=== PATIENT | male | born 1955 | race African-American/Black ===

== ENCOUNTER 2017-07-30 10:08 | Day surgery (SDC) | payer BC ==
[~2017-07-30] VITALS: Ht 180.3 cm; Wt 102.7 kg
[~2017-07-30 10:08] MED LIST: ALLO100T PO; ASPI1TAB57 PO; LOSA50TA PO; METO50TA PO; SPIR25TA PO; ZOCO40TA PO
[2017-07-30] MEDS ORDERED: IOHEXOL 350 MG/ML 100 ML BTL (for Cath Lab) OTHER ONE (10:09)
[2017-07-30 10:46] VITALS: BP 141/84; PULSE 44; RESP 18; TEMP 98.9; O2SAT 98
[2017-07-30] MEDS ORDERED: AMLO10TA2 PO (10:52)
[2017-07-30] MEDS ORDERED: NITR0.4S SL (10:52)
[2017-07-30] MEDS ORDERED: ATOR80TA45 PO (10:52)
[2017-07-30] MEDS ORDERED: ISOS10TA3 PO (10:52)
[2017-07-30] MEDS ORDERED: NS 1000P @30 MLS/HR (KVO) IV SCH (11:00)
[2017-07-30 11:48] LABS: AUTOMATED NEUTROPHIL # 2.4 TH/MM3 (1.8-7.7); BASOPHIL % 0.4 % (0.0-2.0); EOSINOPHIL % 1.1 % (0.0-4.0); HEMATOCRIT 41.6 % (39.0-51.0); HEMOGLOBIN 13.6 GM/DL (13.0-17.0); LYMPH % 31.9 % (9.0-44.0); LYMPHOCYTE # 1.4 TH/MM3 (1.0-4.8); MEAN CELL VOLUME 85.8 FL (80.0-100.0); MEAN CORPUSCULAR HEMOGLOBIN 28.1 PG (27.0-34.0); MEAN CORPUSCULAR HGB CONC 32.8 % (32.0-36.0); MEAN PLATELET VOLUME 8.1 FL (7.0-11.0); MONO % 10.2 % (0.0-8.0); MONOCYTE # 0.4 TH/MM3 (0-0.9); NEUT % 56.4 % (16.0-70.0); PLATELET COUNT 233 TH/MM3 (150-450); RED BLOOD COUNT 4.85 MIL/MM3 (4.50-5.90); RED CELL DISTRIBUTION WIDTH 14.3 % (11.6-17.2); WHITE BLOOD COUNT 4.3 TH/MM3 (4.0-11.0)
[2017-07-30] MEDS ORDERED: MIDAZOLAM HCL 2 MG/2 ML VIAL ONE (12:22)
[2017-07-30] MEDS ORDERED: HEPARIN-NS/PF INJ 1,000 ML ONE (12:22)
[2017-07-30] MEDS ORDERED: SODIUM CHLOR 0.9% 1000 ML INJ 1,000 ML IV SCH (13:35)
[2017-07-30] MEDS ORDERED: BACITRACIN OINT 0.9 GM PKT TOP ONE (13:45)
[2017-07-30] MEDS ORDERED: MISC INFORMATION XX ONE (13:45)
[2017-07-30] MEDS ORDERED: LORazepam 2 MG/ML VIAL IV PUSH PRN (13:45)
[2017-07-30] MEDS ORDERED: ATROPINE SULFATE 1 MG/ML VIAL IV PUSH PRN (13:45)
[2017-07-30] MEDS ORDERED: METOCLOPRAMIDE HCL 10 MG/2 ML VIAL IV PUSH PRN (13:45)
[2017-07-30] MEDS ORDERED: SODIUM CHLOR 0.9% 250 ML INJ 250 ML IV PRN (13:45)
[2017-07-30] MEDS ORDERED: LIDOCAINE HCL 1% 50 ML VIAL INFIL PRN (13:45)
--- NOTE | 2017-07-30 13:53 | CATHPROC ---
[facility] HIS Report Study Information Study Number Admission Scheduled Start Study Start [id number] Jul 30 2017 10:08AM 07/30/2017 Jul 30 2017 12:02PM [facility] Cardiac Catheterization Admit Source Facility Department [facility]er Physician and Clinical Staff Initial Aureliano Madden Retort Press Operator Wayne RN, Justen Recorder Beatrice Benavidez,RT(R) Scrub Alba Chandler,SARA TECH2 Procedures Performed Procedure Location (Site) Vessel Name Angiogram LV LV Ventricle Coronary Angiograms LCA Left Coronary Coronary Angiograms RCA Right Coronary L Heart Cath Equipment Time Engine Dispatcher Description Size Mfg Part Number Used/Scraped TRANSDUCER, TRUWAVE [id number] 12:15 MADRIGAL CHILDERS * Used W/STOCKCOCK *[id number] *[id number] 12:15 Macrocosm INDUSTRIES PACK, CCL CUSTOM * Used *[id number] 12:15 Macrocosm PACER PEN, SKIN DUAL W/ RULER * Used *[id number] 13:17 ZextitTRONIC JL 4.0 DXTERITY CATHETER FR 5 Used *[id number] 13:22 HabitRPG PIGTAIL ANG. CATHETER FR 5 Used *[id number] 12:15 VidPay MEDICAL WIRE, 3MMJ .035 180CM 180CM Used *[id number] 12:15 NAMIC MANIFOLD, 4 PORT * Used *[id number] 13:25 NAMIC TUBING, HIGH PRESSURE 48" 48" Used *[id number] 12:15 NYCOMED OMNIPAQUE, 350 MG, 150ML 150ML [id number] Used 13:24 NYCOMED OMNIPAQUE, 350 MG, 50ML 50ML [id number] Used [id number] 12:15 ZAMORA MEDICAL BLANKET,WARM AIR CCL * Used *[id number] 12:15 TERUMO MEDICAL SHEATH, FR5 TERUMO (10CM) FR 5 Used *[id number] Equipment Model, Serial, Lot Number and Expiration Data Description Model Number Serial Number Lot Number Expiration Date JL 4.0 DXTERITY CATHETER [id number] 02-22-2020 History: Current Medications Medication Dosage/Unit Route Frequency Last Date/Time Taken ASA LOPRESSOR Allopurinol COZAAR NORVASC Statins (any) NTG SL History: Allergies Allergy Reaction No Known Allergies History: Risk Factors Family History of Hypertension Dyslipidemia Previous [facility] Previous Heart Failure Premature CAD Yes Yes No Yes No Prior Valve Prior PCI Prior PCIDate Prior CABG Surgery No Yes 07/23/2008 No Cerebrovascular Peripheral Artery Chronic Lung On Dialysis Diabetes Disease Disease Disease No No No No No History: Stress Tests Stress or Imaging Studies Performed Yes Standard Exercise Stress Test No Stress Echo No Stress Test SPECT Stress Test SPECT Result Stress Test SPECT Ischemia Risk/Extent Yes Positive Intermediate Stress Test CMR No Cardiac CTA Coronary Calcium Score No No History: Other Disease Selection Items CAD HTN History: Other Current Smoker No Labs Hgb (g/dl) Hct (%) WBC (l/cumm) Platelets (thousands) 11.60-17.00 35.00-51.00 4.00-11.00 150.00-450.00 13.6 41.6 4.3 233 Glucose (mg/dl) BUN (mg/dl) Creatinine (mg/dl) BUN:Creatinine (1:x) 74.00-106.00 7.00-18.00 0.50-1.30 10.00-20.00 102 19 1.3 14.6 Na (meq/l) K (meq/l) 136.00-145.00 3.50-5.10 145 4.4 INR (PTT:PT) 0.90-1.10 1 CPK-MB (ng/ML) 0.50-3.60 Not Drawn Medication Medication Total Dose (Bolus/Oral) Medication Total Dosage/Unit 1% XYLOCAINE 20 mL FENTANYL 50 mcg VERSED 2 mg Medications (Bolus/Oral) Medication Time Given Dosage/Unit Administered By Reason FENTANYL 07/30/2017 1:04:47 PM 50 mcg Justen Black RN 50 mcg FENTANYL given in lab by Justen Black RN in Left Antecubital via Peripheral IV. Ordered by Aureliano Faustin. VERSED 07/30/2017 1:05:05 PM 2 mg Justen Black RN 2 mg VERSED given in lab by Justen Black RN in Left Antecubital via Peripheral IV. Ordered by Aureliano Swanson. 1% XYLOCAINE 07/30/2017 1:08:36 PM 20 mL Aureliano Swanson 20 mL 1% XYLOCAINE given in lab by Aureliano Swanson in Right Groin via Subcutaneous. Medication (Drip) Medication Time Given Dosage/Unit Concentration/Unit Diluent (ml) Solutio n IV Solutions 07/30/2017 12:18:12 PM 50 mL (IV) NaCl .9 IV Solutions given in lab by Justen Black RN in Left Antecubital via Peripheral IV. Pump/Drip Flow us ing NaCl .9. Initial Case Assessment Cardiovascular HR Rhythm Chest Pain 44 teresa 0 Edema Present Skin color Skin Mild Normal Warm Dry Circulatory - Right Pulses Dorsalis Pedis Femoral 2 2 Scale (0,1,2,3,4,d) Circulatory - Left Pulses Dorsalis Pedis Femoral 2 2 Scale (0,1,2,3,4,d) Neurological State Oriented to time-place- Alert Moves all extremities person Respiration - General Respiration Rate SpO2 (%) (B/min) 13 98 Chronological Log Time Study Chronological Log 12:17:20 Patient arrived via Bed. 12:17:59 Patient Name, D.O.B, / Armband Verified By R.N. 12:18:00 Consent signed by the physician and the patient and verified by the Quality Checker staff. 12:18:01 Pre-op and post- op instructions given; patient acknowledges understanding of instructions. 12:18:02 Verbal Stimulation=2 Physical Stimulation=2 Airway=2 Respiration=2 TOTAL=8. (0=absent, 1=li mited, 2=present) 12:18:06 Patient has been NPO for More than 6Hrs. 12:18:07 Skin Breakdown- none 12:18:07 Patient Warmer Placed on the Table. 12:18:09 Sharifa Prominences Protected 12:18:11 A # 20 IV was noted in the Antecubital (left). Grade = 0 12:18:12 IV Solutions given in lab by Justen Black RN in Left Antecubital via Peripheral IV. Pump/Dr ip Flow using NaCl .9. 12:18:13 History and physical on the chart or being dictated. Assessment: Initial Case, HR=44 BPM, Rhythm=teresa, Chest Pain=0, Edema=Mild, Color=Normal, Skin = Warm, Dry Right Pulses: Santana Ped=2, Femoral=2 12:18:14 Left Pulses: Santana Ped=2, Femoral=2 Neurological: State=Alert, Ox3, GIL Respiration: Resp=13 B/min, SpO2=98 % Vitals capture started with the following parameters, Patient=Adult, Interval=5 min, Initial Pr fpxbmh=025 mmHg, 12:22:04 Deflation Rate=5 mmHg, Cuff placed on Left Arm 12:23:30 HR=44 bpm, ALUA=233/84 mmhg, SpO2=98.0 %, Resp=13 B/min, Pain=0, Topher=10, Maldonado=2 12:24:50 Reference ECG taken 12:28:33 HR=45 bpm, NROA=366/80 mmhg, SpO2=98.0 %, Resp=19 B/min 12:32:39 HR=45 bpm, NEMN=184/80 mmhg, SpO2=98.0 %, Resp=16 B/min 12:34:24 Bilateral groins prepped with 2% chlorhexidine, and draped after a 3 minute waiting time. 12:39:06 HR=43 bpm, BOLV=762/84 mmhg, SpO2=98.0 %, Resp=16 B/min 12:43:08 Pressure channel 1 zeroed. 12:43:26 HR=43 bpm, URKO=148/73 mmhg, SpO2=96.0 %, Resp=14 B/min 12:47:44 HR=42 bpm, YDYM=111/70 mmhg, SpO2=96.0 %, Resp=16 B/min 12:52:39 HR=35 bpm, NIBP=84/63 mmhg, SpO2=99.0 %, Resp=15 B/min 12:52:54 NIBP STAT measurement started. 12:52:55 paged 12:53:51 MD responded 12:54:03 HR=43 bpm, ADDL=848/78 mmhg, SpO2=99.0 %, Resp=11 B/min 12:55:25 MD arrived. 12:57:44 HR=41 bpm, EFSV=281/77 mmhg, SpO2=98.0 %, Resp=12 B/min 13:03:22 HR=43 bpm, MMNE=320/80 mmhg, SpO2=98.0 %, Resp=20 B/min 13:04:47 50 mcg FENTANYL given in lab by Justen Black RN in Left Antecubital via Peripheral IV. Orde red by Aureliano Swanson. 13:05:05 2 mg VERSED given in lab by Justen Black RN in Left Antecubital via Peripheral IV. Ordered by Aureliano Swanson. Time Out. Correct patient, correct procedure, correct physician, power injector loaded, or not loaded with contrast with 13:06:24 surgical team present. Time Out Concurred by MD and individual staff in procedure. 13:07:30 Case Start 13:08:33 HR=41 bpm, OUQX=658/68 mmhg, SpO2=99.0 %, Resp=7 B/min 13:08:36 20 mL 1% XYLOCAINE given in lab by Aureliano Swanson in Right Groin via Subcutaneous. 13:09:17 Access site was Right Femoral Artery. 13:09:47 A SHEATH, FR5 TERUMO (10CM) FR 5 was advanced into the Fem Art (right) using the Percutaneo us technique. A JR 4.0 INFINITI CATHETER FR 5 was advanced over a wire. OMNIPAQUE, 350 MG, 150ML 150ML was us ed for 13:11:03 injections. 13:13:22 HR=49 bpm, BNHC=706/70 mmhg, SpO2=95.0 %, Resp=11 B/min Recorded Pressure: Ao, HR=50, Condition=Condition 1 13:14:45 (Aorta) Ao 107/63/80 13:15:11 The RCA was injected and visualized at various angles. OMNIPAQUE, 350 MG, 150ML 150ML used . After removing the current catheter a JL 4.0 DXTERITY CATHETER FR 5 was advanced over a WIRE, 3 MMJ .035 180CM 13:16:22 180CM. 13:17:46 HR=41 bpm, YYFL=029/66 mmhg, SpO2=99.0 %, Resp=12 B/min 13:18:07 The LCA was injected and visualized at various angles. OMNIPAQUE, 350 MG, 150ML 150ML used . After removing the current catheter a PIGTAIL ANG. CATHETER FR 5 was advanced over a WIRE, 3MMJ .035 180CM 13:22:01 180CM. 13:22:45 HR=57 bpm, BYWX=573/69 mmhg, SpO2=99.0 %, Resp=10 B/min Recorded Pressure: LV, HR=47, Condition=Condition 1 13:25:10 (Left Ventricle) LV 107/4/13 13:26:26 The LV was injected at 10 cc/sec for a total of 30. OMNIPAQUE, 350 MG, 50ML 50ML used. 13:26:53 Catheter was removed 13::57 Case End 13:27:46 HR=57 bpm, ESQR=068/64 mmhg, DiB8=703.0 %, Resp=19 B/min 13:29:43 Sheath removed; pressure applied to access site. 13:32:45 HR=54 bpm, NWJX=746/75 mmhg, DhY1=381.0 %, Resp=14 B/min 13:35:05 Sterile dressing applied to site 13:35:07 No case complications noted. 13:35:30 Bedside Report will be given. 13:35:35 A Left Heart Cath was performed. 13:37:46 HR=45 bpm, KKKP=297/78 mmhg, UhB7=603.0 %, Resp=14 B/min 13:42:48 HR=49 bpm, OQDX=793/75 mmhg, SpO2=99.0 %, Resp=24 B/min 13:52:40 Vitals capture stopped. 13:52:46 Patient moved to [facility] End Study - Contrast Media Used In Study Contrast Total Opened (mL) Total Used (mL) Total Wasted (mL) Omnipaque 70 70 0 End Study - Maximum Contrast Load Max Contrast Load (mL) 394.9 End Study - Radiation Exposure Fluoro Time (minutes) 2.0 End Study - Patient Disposition Complications Transferred To Interventional Outcome No Telemetry Bed No attempt made
--- NOTE | 2017-07-30 14:34 | MA ---
cc: FELIX BARDALES DATE 07/30/2017 INDICATION FOR PROCEDURE Unstable angina. PROCEDURE PERFORMED 1. Fluoroscopy with interpretation. 2. Coronary angiography. 3. Left heart catheterization. 4. Left ventriculography. METHOD The risks, benefits and alternatives were discussed with the patient. The patient understood and consented to the procedure. The patient was brought into the catheterization lab and placed on the catheterization table. The right groin was prepped and draped in sterile fashion. The right groin was anesthetized with 2% lidocaine. The right common femoral artery was cannulated and a 5 Czech, 11 cm sheath was placed without difficulty. LEFT HEART CATHETERIZATION Intraventricular hemodynamics measured 107/4 4 mmHg, left ventricular end-diastolic pressure 10 mmHg. No significant aortic stenosis by transaortic valvular pullback gradient. LEFT VENTRICULOGRAPHY The left ventriculography is performed in a right anterior oblique view using a 5 Czech angled pigtail catheter and 30 cc contrast injection with good opacification. Left ventriculogram revealed ejection fraction of 65%. No significant mitral regurgitation was noted. CORONARY ANGIOGRAPHY 1. The left main coronary has some distal mild disease of 30%. 2. The left anterior descending coronary has a 90% proximal, looks like in-stent restenosis. There is a high diagonal branch which has a 70% ostial stenosis. The remainder of the left anterior descending and diagonal branch have minor luminal irregularities. 3. The left circumflex gives rise to an obtuse marginal branch with a 75% stenosis. 4. The right coronary is a dominant vessel giving rise to a posterior descending branch. The mid right coronary has a 90% stenosis and there appears to be a distal stent in the right coronary artery. The posterior descending branch has a 50% stenosis in the prox-mid segment. CONCLUSIONS 1. Multivessel coronary artery disease. 2. Normal left ventricular systolic function. MD CARSON Ho/MIKE /1:28 PM /2:11 PM
--- NOTE | 2017-07-30 14:55 | PD.CAR.PN ---
CVT Progress Note Subjective/Hospital Course: pt seen and evaluated, sts data discussed with pt RISK SCORES About the STS Risk Calculator Procedure: CAB Only Risk of Mortality: 0.529% Morbidity or Mortality: 9.798% Long Length of Stay: 2.798% Short Length of Stay: 59.626% Permanent Stroke: 0.85% Prolonged Ventilation: 5.673% DSW Infection: 0.296% Renal Failure: 3.363% Reoperation: 3.633% Objective: Vital Signs Date Time Temp Pulse Resp B/P (MAP) Pulse Ox O2 Delivery O2 Flow Rate FiO2 07/30/17 14:05 98 Room Air 07/30/17 10:46 98.9 44 18 141/84 (103) 98 Labs: Laboratory Tests Test 07/30/17 10:56 White Blood Count 4.3 TH/MM3 (4.0-11.0) Red Blood Count 4.85 MIL/MM3 (4.50-5.90) Hemoglobin 13.6 GM/DL (13.0-17.0) Hematocrit 41.6 % (39.0-51.0) Mean Corpuscular Volume 85.8 FL (80.0-100.0) Mean Corpuscular Hemoglobin 28.1 PG (27.0-34.0) Mean Corpuscular Hemoglobin Concent 32.8 % (32.0-36.0) Red Cell Distribution Width 14.3 % (11.6-17.2) Platelet Count 233 TH/MM3 (150-450) Mean Platelet Volume 8.1 FL (7.0-11.0) Neutrophils (%) (Auto) 56.4 % (16.0-70.0) Lymphocytes (%) (Auto) 31.9 % (9.0-44.0) Monocytes (%) (Auto) 10.2 % (0.0-8.0) Eosinophils (%) (Auto) 1.1 % (0.0-4.0) Basophils (%) (Auto) 0.4 % (0.0-2.0) Neutrophils # (Auto) 2.4 TH/MM3 (1.8-7.7) Lymphocytes # (Auto) 1.4 TH/MM3 (1.0-4.8) Monocytes # (Auto) 0.4 TH/MM3 (0-0.9) Eosinophils # (Auto) 0.0 TH/MM3 (0-0.4) Basophils # (Auto) 0.0 TH/MM3 (0-0.2) CBC Comment DIFF FINAL Differential Comment Result Diagram: 07/30/17 1056 Jacquie Killian Jul 30, 2017 14:55
[2017-07-30 15:19] LABS: ALBUMIN 3.8 GM/DL (3.4-5.0); ALT (GPT) 44 U/L (12-78); AST (GOT) 47 U/L (15-37); BICARBONATE 31.9 MEQ/L (21.0-32.0); BLOOD UREA NITROGEN 23 MG/DL (7-18); CALCIUM 9.1 MG/DL (8.5-10.1); CHLORIDE 106 MEQ/L (98-107); CREATININE 1.38 MG/DL (0.60-1.30); GLOMERULAR FILTRATION RATE 63 ML/MIN (>89); GLUCOSE,RANDOM 97 MG/DL (74-106); SODIUM (NA) 141 MEQ/L (136-145)
[2017-07-30 15:21] LABS: ALKALINE PHOSPHATASE 101 U/L (45-117); TOTAL BILIRUBIN ADULT 0.5 MG/DL (0.2-1.0); TOTAL PROTEIN 8.2 GM/DL (6.4-8.2)
--- NOTE | 2017-07-30 16:02 | RADRPT ---
EXAM DATE/TIME: 07/30/2017 15:05 [facility] COMPARISON: No previous studies available for comparison. INDICATIONS : Preop cardiac surgery. MEDICAL HISTORY : Coronary artery disease. Hypertension. Hyperlipidemia. Mumps. Measles. SURGICAL HISTORY : Coronary artery stent. ENCOUNTER: Initial ACUITY: 1 day PAIN SCORE: 0/10 LOCATION: Bilateral legs. TECHNIQUE: Venous ultrasound of the left and right leg was performed from the inguinal ligament to the proximal calf. Real-time, color Doppler and spectral tracing, compression and augmentation techniques were us ed. FINDINGS: RIGHT LEG: There is normal compressibility of the deep venous system from the inguinal region to the proximal ca lf. No echogenic clot is seen in the lumen of the common femoral, femoral, popliteal, and posterior tibial veins. There is a normal response of the venous system to proximal and distal augmentation an d respiration. LEFT LEG: There is normal compressibility of the deep venous system from the inguinal region to the proximal ca lf. No echogenic clot is seen in the lumen of the common femoral, femoral, popliteal, and posterior tibial veins. There is a normal response of the venous system to proximal and distal augmentation an d respiration. CONCLUSION: No evidence of DVT. Martin Daley MD on July 30, 2017 at 15:59 Board Certified Radiologist. This report was verified electronically.
--- NOTE | 2017-07-30 16:05 | RADRPT ---
EXAM DATE/TIME: 07/30/2017 15:13 [facility] COMPARISON: No previous studies available for comparison. INDICATIONS : Preop cardiac surgery. MEDICAL HISTORY : Coronary artery disease. Hypertension. Hyperlipidemia. Mumps. Measles. SURGICAL HISTORY : Coronary artery stent. ENCOUNTER: Initial ACUITY: 1 day PAIN SCORE: 0/10 LOCATION: Bilateral legs. GREATER SAPHENOUS VEIN THIGH: PROXIMAL: Right 5 mm Left 7 mm MID: Right 4 mm Left 4 mm DISTAL: Right 2 mm Left 2 mm CALF: PROXIMAL: Right 3 mm Left 2 mm MID: Right 2 mm Left 2 mm DISTAL: Right 2 mm Left Non-visualized FINDINGS: The venous system of the lower extremities are patent by color Doppler imaging. Measurements of the leg veins (in mm) are listed above. CONCLUSION: Lower extremity venous mapping completed. Superficial venous measurements stated jaleel Daley MD on July 30, 2017 at 16:02 Board Certified Radiologist. This report was verified electronically.
--- NOTE | 2017-07-30 16:07 | RADRPT ---
EXAM DATE/TIME: 07/30/2017 15:32 [facility] COMPARISON: No previous studies available for comparison. INDICATIONS : Preop cardiac surgery. MEDICAL HISTORY : Coronary artery disease. Hypertension. Hyperlipidemia. Mumps. Measles. SURGICAL HISTORY : Coronary artery stent. ENCOUNTER: Initial ACUITY: 1 day PAIN SCORE: 0/10 LOCATION: Bilateral neck PEAK SYSTOLIC VELOCITIES (cm/sec): ICA/CCA RATIO: Right: 1.1 Left: 0.6 ICA: Right: 91 Left: 74 CCA: Right: 87 Left: 114 ECA: Right: 98 Left: 60 VERTEBRAL: Right: 37 antegrade Left: 43 antegrade Elevated flow velocities and ICA/CCA ratios have been found to correlate with increased degrees of vessel stenosis, calculated as percentage of diameter relative to a normal segment of distal ICA/CCA FINDINGS: RIGHT CAROTID: No significant stenosis is visualized. The waveforms are within normal limits. LEFT CAROTID: No significant stenosis is visualized. The waveforms are within normal limits. VERTEBRAL ARTERIES: Antegrade flow is seen in both vertebral arteries. MISCELLANEOUS: None. CONCLUSION: Negative for hemodynamically significant stenosis.. Alexi Eisenberg MD FACR on July 30, 2017 at 16:04 Board Certified Radiologist. This report was verified electronically.
[2017-07-30 16:11] LABS: HEMOGLOBIN A1C 6.5 % (4.3-6.0)
--- NOTE | 2017-07-30 16:34 | RADRPT ---
EXAM DATE/TIME: 07/30/2017 16:09 [facility] COMPARISON: No previous studies available for comparison. INDICATIONS : Post cardiac catherization. MEDICAL HISTORY : Hypertension. Hypercholesterolemia. coronary artery disease, mumps, measles SURGICAL HISTORY : Coronary artery stent. ENCOUNTER: Initial ACUITY: 1 day PAIN SCORE: 0/10 LOCATION: Bilateral chest FINDINGS: A single view of the chest demonstrates the lungs to be symmetrically aerated without evidence of mas s, infiltrate or effusion. The cardiac silhouette is in the upper limits of normal. Osseous structu res are intact. CONCLUSION: 1. Negative portable chest. Adarsh Madison MD on July 30, 2017 at 16:31 Board Certified Radiologist. This report was verified electronically.
--- NOTE | 2017-07-30 16:46 | MB ---
cc: KRISTAL CARDOZO MD DATE OF CONSULTATION 07/30/2017 DATE OF 1955 INDICATION 62-year-old male, patient of Dr. Aureliano Swanson, Dr. Fredrick Witt. HISTORY OF THE PRESENT ILLNESS A 62-year-old male with a history of coronary artery disease with prior stent in 2008. 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 He ended up in an hospital up in [place] and was ruled out for TN. They did however start some Imdur besides his nitroglycerin sublingual. He had seen Dr. Swanson prior to that because of some chest discomfort he had been having off and on for the past couple of months, mainly pressure in the center of his chest. ore noticeable only when he was playing the piano, nonradiating. No associated shortness of breath, nausea, vomiting. He underwent a nuclear stress test that showed normal LV systolic function, ejection fraction of 59. No regional wall motion abnormalities. He also underwent CTA and coronary angiogram which also showed an EF at that point of 48%. Extensive calcified plaque within the LAD, apparently there was a stent in the proximal segment which appeared to be patent. There was also some scattered calcified plaque through the RCA. There is a stent in the RCA, suggested that it was patent. Good wall motion contractility. Said he was scheduled as an outpatient for cardiac cath which he underwent today that showed ejection fraction of 65%, the left main 30% stenosed, proximal LAD 90%, diagonal 75%, the OM 75%, the RCA 80%. We were consulted to evaluate for coronary artery bypass grafting. PAST MEDICAL HISTORY The patient's past medical history includes: 1. Coronary artery disease. 2. Hypertension. 3. Chronic lower extremity edema where he uses compression stockings. 4. Chronic kidney disease stage II. 5. Gout. 6. Hyperlipidemia. 7. Vitamin D deficiency. PAST SURGICAL HISTORY Surgeries include: Coronary stent placement. ALLERGIES NO KNOWN ALLERGIES. MEDICATIONS Home medications include: 1. Allopurinol 100 daily. 2. Amlodipine 10 p.o. daily. 3. Aspirin 81 daily. 4. Atorvastatin 80 mg daily. 5. Losartan 100 daily. 6. Metoprolol 50 b.i.d. 7. Nitrostat p.r.n. FAMILY HISTORY Mother from ovarian cancer. Estranged from his father. Brother has prostate cancer. SOCIAL HISTORY The patient is single, has two children. Originally from [place]. No tobacco, alcohol or illicit drugs. 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 REVIEW OF SYSTEMS GENERAL: No night sweats, fever, heat and cold intolerance. SKIN: No psoriasis, itching or hives. HEENT: No blurred vision, hearing loss. RESPIRATORY: Positive for some shortness of breath. CARDIOVASCULAR: As above in the HPI. GASTROINTESTINAL: No diarrhea, vomiting. GENITOURINARY: No burning frequency, urgency. FINAL TOUCH UP PAINTER: No history of TIA, CVA, seizure disorder. ENDOCRINE: No diabetes. PHYSICAL EXAMINATION VITAL SIGNS: On exam blood pressure 140/80, heart rate of 44, temperature max 98.9. GENERAL: Patient is awake, alert in no acute distress. HEENT: Head is normocephalic, atraumatic. Pupils equal and reactive. Oral mucosa pink, moist. NECK: Supple. No JVD. CARDIOVASCULAR: Heart sounds S1-S2 regular rate and rhythm. No audible rubs, murmurs, gallops. LUNGS: Clear to auscultation. No wheezes, rales or rhonchi. ABDOMEN: Soft, nontender. No masses or organomegaly. EXTREMITIES: Reveal trace edema with good distal pulses. LABORATORY DATA Lab work shows hemoglobin 13, hematocrit of 41, white cell count 4, platelet count 233. Sodium 145, potassium 4.4, BUN 19, creatinine of 1.39. GFR 63. Glucose 102. INR 1.0. IMAGING Chest x-ray, carotid ultrasound, leg vein mapping are all pending. EKG shows sinus bradycardia with some T-wave inversion in inferior leads. IMPRESSION This is a very pleasant 62-year-old male patient of Dr. Aureliano Swanson, patient of Dr. Carla Witt with unstable angina, history of recent chest pain, positive cardiac cath, multivessel disease, normal ejection fraction of 65%. Procedures, alternatives and risks have been discussed with the patient. The plan will be for coronary artery bypass grafting times four. Scheduling will be for August 03. The patient will come in as an outpatient. All procedures will be discussed further also with our nursing navigator. DICTATED BY: BETH Santos Kristal SAMPSON /2:44 PM /3:58 PM
[2017-07-30 18:14] LABS: BILIRUBIN, URINE NEG (NEG); BLOOD, URINE NEG (NEG); GLUCOSE,URINE NEG (NEG); KETONE, URINE NEG (NEG); NITRITE,URINE NEG (NEG); PH, URINE 5.5 (5.0-8.5); URINE COLOR LIGHT-YELLOW (YELLW/STRAW); URINE LEUKOCYTE ESTERASE NEG (NEG)
--- NOTE | 2017-07-31 16:01 | EKG ---
Date Performed: 07/30/2017 Time Performed: 10:48:32 PTAGE: 62 years EKG: Sinus bradycardia. Possible left anterior fascicular block Inferior T wave changes may be d ue to myocardial ischemia Abnormal ECG NO PREVIOUS TRACING Clinical correlation is recommended DOCTOR: Woo Negron Interpretating Date/Time 07/31/2017 15:59:50
--- NOTE | 2017-08-01 09:39 | RSPPFT ---
DATE OF PROCEDURE: 07/30/17 COMMENTS: Spirometry with FVC of 2.4, FEV1 of 1.8 and FEV1/FVC ratio at 77%. IMPRESSION: 1. Decreased flow rates. 2 No gross obstruction. 3. Possible restriction. 4. If clinically warranted, lung volumes may be helpful.
== END 2017-07-30 18:27 | disposition home or self-care (01) ==
LOC: HDOC 10:08 → HDIC 10:08 → HDOC 18:27
PROVIDERS: ATTEND Internal Medicine
DX: I25.110 Atherosclerotic heart disease of native coronary artery with unstable angina pectoris (principal); I12.9 Hypertensive chronic kidney disease with stage 1 through stage 4 chronic kidney disease, or unspecified chronic kidney disease; N18.2 Chronic kidney disease, stage 2 (mild); E78.5 Hyperlipidemia, unspecified; E55.9 Vitamin D deficiency, unspecified; M10.9 Gout, unspecified; Z79.82 Long term (current) use of aspirin; Z95.5 Presence of coronary angioplasty implant and graft; Z01.811 Encounter for preprocedural respiratory examination; Z01.818 Encounter for other preprocedural examination
CPT/HCPCS: 71045; 80053; 81001; 83036; 85025; 86850; 86900; 86901; 87641; 93005; 93458; 93880; 93970; 93998; 94010; 99152; C1769; C1893; J1644; J2250; J3010; Q9967

== ENCOUNTER 2017-08-03 05:17 | Inpatient (IN) | payer BC ==
[2017-08-03] VITALS (9 sets, daily range): BP systolic 112–127; BP diastolic 54–73; PULSE 66–81; RESP 12–20; TEMP 97.6–98.6; O2SAT 93–98
[~2017-08-03] VITALS: Ht 180.3 cm; Wt 103.0 kg
[~2017-08-03 05:17] MED LIST changes: +AMLO10TA2 PO; +ATOR80TA45 PO; +ISOS10TA3 PO; +NITR0.4S SL; -SPIR25TA PO; -ZOCO40TA PO
[2017-08-03] MEDS ORDERED: CHLORHEXIDINE GLUCONATE 4% SOLN 120 ML BTL TOPICAL SCH (05:45)
[2017-08-03] MEDS ORDERED: METOPROLOL TARTRATE 25 MG TAB PO PRN (05:45)
[2017-08-03] MEDS ORDERED: CEFAZOLIN 500 MG in NS IRR BTL 500 ML IRRIGATION SCH (05:45)
[2017-08-03] MEDS ORDERED: LACTATED RINGER'S 1000 ML IV PRN (05:45)
[2017-08-03] MEDS ORDERED: POVIDONE IODINE 5% (ANTISEPSIS KIT) 4 APPLICATIONS EACH NARE PRN (05:45)
[2017-08-03] MEDS ORDERED: CHLORHEXIDINE GLUCONATE 2 % 1 PACK (2 CLOTHS) TOPICAL PRN (05:45)
[2017-08-03] MEDS ORDERED: PAPAVERINE 60 MG-NITROGLYCERIN 100 MCG-DILTIAZEM 100 MG in NS 100 ML IRRIGATION SCH ×4 (05:45)
[2017-08-03] MEDS ORDERED: INSULIN REGULAR 100 UNITS in NS 100 ML IV PRN (05:45)
[2017-08-03] MEDS ORDERED: DEXTROSE 50% IN WATER 50 ML VIAL(D50) IV PUSH PRN ×2 (05:45→13:30)
[2017-08-03] MEDS ORDERED: SODIUM CHLORID 0.9% 500 ML IV PRN (05:45)
[2017-08-03] MEDS ORDERED: METOPROLOL TARTRATE 25 MG TAB PO SCH (05:45)
[2017-08-03] MEDS ORDERED: SODIUM CHLORIDE 0.9% FLUSH 10 ML FLUSH IV FLUSH PRN ×3 (05:45→13:15)
[2017-08-03] MEDS ORDERED: VANCOMYCIN HCL 1000 MG VIAL ONE (05:56)
[2017-08-03] MEDS ORDERED: ceFAZolin 2 GM PREMIX 50 ML ONE ×2 (05:56→06:46)
[2017-08-03] MEDS ORDERED: HEPARIN SODIUM - SQ 10,000 UNITS/ML VIAL ONE (05:56)
[2017-08-03] MEDS: ceFAZolin 2 GM PREMIX 50 ML IV SCH ×4 (07:31→21:27)
[2017-08-03] MEDS ORDERED: DEXMEDETOMIDINE HCL 200 MCG/2 ML VIAL ONE (10:22)
[2017-08-03] MEDS ORDERED: PROPOFOL 500 MG/50 ML BTL IV ONE (12:00)
[2017-08-03] MEDS ORDERED: LIDOCAINE HCL 2% 100 MG/5 ML SYRINGE IV PUSH ONE (12:00)
[2017-08-03] MEDS ORDERED: NITROGLYCERIN 50 MG/DEXTROSE 5% SOLN 250 ML BTL IV ONE (12:00)
[2017-08-03] MEDS ORDERED: GLYCOPYRROLATE 1 MG/5 ML SYRINGE IV PUSH ONE (12:00)
[2017-08-03] MEDS ORDERED: VECURONIUM BROMIDE 10 MG VIAL IV ONE (12:00)
[2017-08-03] MEDS ORDERED: MAGNESIUM SULFATE 1 GM/2 ML VIAL IV ONE (12:00)
[2017-08-03] MEDS ORDERED: ceFAZolin INJ 1,000 MG VIAL IV ONE (12:00)
[2017-08-03] MEDS ORDERED: LACTATED RINGER'S 1000 ML INJ 1,000 ML IV ONE (12:00)
[2017-08-03] MEDS ORDERED: SODIUM CHLOR 0.9% 1000 ML INJ 1,000 ML IV ONE (12:00)
[2017-08-03] MEDS ORDERED: NS 100 ML (PAB BAG) 100 ML IV ONE (12:00)
[2017-08-03] MEDS ORDERED: VECURONIUM BROMIDE 20 MG VIAL IV ONE (12:00)
[2017-08-03] MEDS ORDERED: PROTAMINE SULFATE 250 MG/25 ML VIAL IV ONE (12:00)
[2017-08-03] MEDS ORDERED: SODIUM CHLOR 0.9% 250 ML INJ 250 ML IV ONE (12:00)
[2017-08-03] MEDS ORDERED: PHENYLEPH/NS 1000 MCG/10 ML SYR IV ONE (12:00)
[2017-08-03] MEDS ORDERED: ePHEDrine/NS 25 MG/5 ML SYRINGE IV ONE ×2 (12:00)
[2017-08-03] MEDS ORDERED: HEPARIN SODIUM - SQ 10,000 UNITS/ML VIAL OTHER ONE (12:00)
[2017-08-03] MEDS ORDERED: POTASSIUM CHLOR 40 MEQ PREMIX 100 ML ONE (12:04)
[2017-08-03] MEDS ORDERED: ALBUMIN 5% INJ 250 ML IV PRN (12:15)
--- NOTE | 2017-08-03 12:43 | PD.OP ---
cc: Bakari Oscar MD; Aureliano Swanson MD Operative Report Date of Surgery: Aug 03, 2017 Preoperative Diagnosis: Postoperative Diagnosis: Procedure: 1. Off-pump Coronary Artery Bypass Grafting x 4 with Left Internal Mammary Artery (OROSCO) to the Left Anterior Descending (LAD), reverse saphenous vein graft to the Obtuse Marginal 1 (OM1) branch of the Circumflex artery, reverse saphenous vein graft to the Diagonal 1 (D1), reverse saphenous vein graft to the Posterior Descending Artery (RPDA) of the Right Coronary Artery 2. Left Leg Endoscopic Vein Letha 3. Intraoperative Vein Mapping . Surgeon: Bakari Oscar Syrup Shed Supervisor(s): Jennifer De La Rosa Operation and Findings: PREPROCEDURE DIAGNOSES 1. Multi-Vessel Coronary Artery Disease. 2. Stable Angina POSTPROCEDURE DIAGNOSES Same SURGICAL PROCEDURE 1. Off-pump Coronary Artery Bypass Grafting x 4 with Left Internal Mammary Artery (OROSCO) to the Left Anterior Descending (LAD), reverse saphenous vein graft to the Obtuse Marginal 1 (OM1) branch of the Circumflex artery, reverse saphenous vein graft to the Diagonal 1 (D1), reverse saphenous vein graft to the Posterior Descending Artery (RPDA) of the Right Coronary Artery 2. Left Leg Endoscopic Vein Letha 3. Intraoperative Vein Mapping SURGEON Bakari Oscar MD COMPRESSOR MECHANIC BUS ROGER [facility] ANESTHESIA General endotracheal UMBRELLA REPAIRER YODIT Laughlin MD PREPARATION ChloraPrep. COUNTS Needle, sponge, and instrument counts were correct. DRAINS Two 32-Ecuadorean mediastinal tubes. COMPLICATIONS None. INDICATIONS FOR PROCEDURE The patient is a 62-year-old presenting with multi-vessel coronary artery disease. He is being brought to the operating room for surgical revascularization therapy. PROCEDURE Patient was brought to the operating room and placed supine on the OR table. Following the induction of adequate general endotracheal anesthesia and placement of appropriate monitoring devices, intraoperative vein mapping was performed which revealed small but suitable-caliber conduit in the both leg. The patient was then prepped and draped in standard sterile fashion. Next, 2500 units of intravenous heparin was given. The left greater saphenous vein was harvested endoscopically from the thigh. This appeared to be a useable-caliber conduit. Simultaneously, a median sternotomy was performed and the left internal mammary artery dissected free off the posterior sternal table. The patient was systemically heparinized and anticoagulation monitored by serial ACT measurements. The internal mammary artery had good pulsatile flow in it and was a decent-caliber conduit. The pericardium was then divided in the midline, the cradle created and targets analyzed. At this point, all anastomoses were performed in a beating-heart fashion using the MaqueElance stabilizing system. The left internal mammary artery was anastomosed to the distal LAD (2 mm) in an end-to-side fashion using 7-0 Prolene. The next segment was anastomosed to the OM1 (1.75 mm) in an end-to-side fashion using a running 7 -0 Prolene. The next segment was anastomosed to the RPDA (2 mm) in an end-to- side fashion using a running 7-0 Prolene. The proximal and mid RCA was very diffusely and heavily calcified. The final segment was anastomosed to the D1 ( 1.5 mm) in an end-to-side fashion using a running 7-0 Prolene. The proximal anastomoses were then constructed to the ascending aorta in a running manner using 6-0 Prolene. All anastomotic sites were inspected and appeared to be hemostatic and patent. Protamine solution was given. Strict hemostasis was assured. The closure was undertaken. 2 chest tubes were placed. The pericardium was reapproximated in the midline. The sternum was approximated using sternal wires. The muscular and fascial layer were then closed in 3 layers. The endoscopic vein harvest site was closed in 2 layers. The patient tolerated the procedure well and was transferred to CVICU in stable condition. Bakari Oscar MD Aug 03, 2017 12:43
[2017-08-03] MEDS ORDERED: ACETAMINOPHEN 325 MG TAB PO PRN (12:45)
[2017-08-03] MEDS ORDERED: ACETAMINOPHEN 650 MG SUPP RECTAL PRN (12:45)
[2017-08-03] MEDS ORDERED: MORPHINE SULFATE 2 MG/ML INJ IV PUSH PRN (13:00)
[2017-08-03] MEDS ORDERED: RESP: RACEPINEPHRINE 2.25% 0.5 ML NEB NEB PRN (13:15)
[2017-08-03] MEDS ORDERED: SODIUM BICARBONATE 8.4% SOLN 50 MEQ/50 ML VIAL IV PUSH PRN ×2 (13:15)
[2017-08-03] MEDS ORDERED: LACTATED RINGER'S 1000 ML INJ 500 ML IV PRN (13:15)
[2017-08-03] MEDS ORDERED: CALCIUM CHLORIDE INJ 1 GM in SODIUM CHLORIDE 0.9% INJ 100 ML IV PRN (13:30)
[2017-08-03] MEDS ORDERED: CALCIUM CHLORIDE 10% 1 GRAM/10 ML VIAL IV PUSH PRN (13:30)
[2017-08-03] MEDS ORDERED: INSULIN REGULAR (IV INFUSION) 100 UNITS in SODIUM CHLORIDE 0.9% INJ 99 ML IV PRN (13:30)
[2017-08-03] MEDS ORDERED: POTASSIUM CHLORIDE 20 MEQ CONTROLLED RELEASE TAB PO PRN ×2 (13:30)
[2017-08-03] MEDS ORDERED: hydrALAZINE HCL 20 MG/ML VIAL IV PUSH PRN (13:30)
[2017-08-03] MEDS ORDERED: ONDANSETRON HCL 4 MG/2 ML VIAL IV PUSH PRN (13:30)
[2017-08-03] MEDS ORDERED: NITROGLYCERIN-D5W 50 MG/250 ML 250 ML IV PRN (13:45)
[2017-08-03] MEDS ORDERED: DOBUTamine PREMIX DRIP 250 ML IV PRN (13:45)
[2017-08-03] MEDS ORDERED: DEXMEDETOMIDINE INJ 200 MCG in SODIUM CHLORIDE 0.9% INJ 50 ML IV PRN (13:45)
[2017-08-03] MEDS ORDERED: DOPamine INJ PREMIX 500 ML IV PRN (13:45)
[2017-08-03] MEDS ORDERED: POTASSIUM CHLOR 20 MEQ PREMIX 100 ML IV PRN ×3 (13:45)
[2017-08-03] MEDS ORDERED: CLEVIDIPINE INJ 50 ML IV PRN (13:45)
[2017-08-03] MEDS ORDERED: PHENYLEPHRINE INJ 40 MG in DEXTROSE 5% IN WATE 500 ML INJ 496 ML IV PRN ×2 (14:00)
[2017-08-03] MEDS ORDERED: MEPERIDINE HCL 25 MG/ML VIAL IV PUSH PRN (14:00)
[2017-08-03] MEDS ORDERED: METOPROLOL TARTRATE 5 MG/5 ML VIAL IV PUSH PRN (14:00)
[2017-08-03] MEDS ORDERED: RESP: ALBUTEROL 2.5 MG/IPRATROPIUM 0.5 MG NEB (PRN) NEB (14:00)
[2017-08-03] MEDS ORDERED: MAGNESIUM SULFATE INJ 2 GM in SODIUM CHLORIDE 0.9% INJ 100 ML IV PRN ×4 (14:00)
[2017-08-03] MEDS ORDERED: Post-op Orders (for Pharmacy) OTHER ONE (14:00)
--- NOTE | 2017-08-03 14:07 | RADRPT ---
EXAM DATE/TIME: 08/03/2017 13:28 [facility] COMPARISON: CHEST SINGLE AP, July 30, 2017, 16:09. INDICATIONS : Post CABG. MEDICAL HISTORY : Hypertension. Hypercholesterolemia. coronary artery disease, mumps, SURGICAL HISTORY : CABG. Coronary artery stent. ENCOUNTER: Initial ACUITY: 1 day PAIN SCORE: Non-responsive. LOCATION: Bilateral chest FINDINGS: ETT at the level of the clavicles. Suspected NGT in the stomach. Right IJ central line with tip in th e proximal right atrium. Mediastinal drains and left-sided chest tube in place. No significant pneumo thorax. Minimal bibasilar airspace disease, likely atelectasis. Cardiomediastinal contours are stable . Remainder of exam is unchanged. CONCLUSION: 1. Expected postoperative features of cardiac surgery with tubes and lines, as above. 2. No significant pneumothorax. Adarsh Madison MD on August 03, 2017 at 14:03 Board Certified Radiologist. This report was verified electronically.
[2017-08-03] MEDS: ACETAMINOPHEN 1000 MG/100 ML 100 ML IV SCH ×2 (14:24→18:18)
[2017-08-03] MEDS: RESP: ALBUTEROL 2.5 MG/IPRATROPIUM 0.5 MG NEB (SCH) NEB ×2 (16:39→19:18)
[2017-08-03] MEDS: KETOROLAC TROMETHAMINE 30 MG/ML (IVP) VIAL IV PUSH PRN (18:17)
[2017-08-03] MEDS: SODIUM CHLORIDE 0.9% FLUSH 10 ML FLUSH IV FLUSH SCH (21:00)
[2017-08-03] MEDS: AMIODARONE 200 MG TAB PO SCH (21:00)
[2017-08-04] VITALS (14 sets, daily range): BP systolic 96–128; BP diastolic 50–69; PULSE 73–94; RESP 16–24; TEMP 98.2–99.2; O2SAT 89–97
[2017-08-04] MEDS: ACETAMINOPHEN 1000 MG/100 ML 100 ML IV SCH ×2 (00:28→05:50)
[2017-08-04] MEDS: RESP: ALBUTEROL 2.5 MG/IPRATROPIUM 0.5 MG NEB (SCH) NEB ×4 (02:26→19:32)
--- NOTE | 2017-08-04 04:37 | RADRPT ---
EXAM DATE/TIME: 08/04/2017 03:47 [facility] COMPARISON: CHEST SINGLE AP, August 03, 2017, 13:28. INDICATIONS : Shortness of breath, possible pulmonary disease. MEDICAL HISTORY : Hypertension. Hypercholesterolemia. CAD Mumps SURGICAL HISTORY : Coronary artery stent. CABG. ENCOUNTER: Subsequent ACUITY: 2 days PAIN SCORE: Non-responsive. LOCATION: Bilateral chest FINDINGS: The endotracheal tube has been removed. The left-sided chest tube and right-sided chest tube remains in place. There is a right-sided central line in place. There is no pneumothorax. There is some bibas ilar areas of atelectasis. The heart size is stable. CONCLUSION: Bibasilar atelectasis. No evidence of pneumothorax. Rob Waddell MD on August 04, 2017 at 4:33 Board Certified Radiologist. This report was verified electronically.
[2017-08-04 05:00] LABS: HEMATOCRIT 37.8 % (39.0-51.0); HEMOGLOBIN 12.5 GM/DL (13.0-17.0); MEAN CELL VOLUME 84.9 FL (80.0-100.0); MEAN CORPUSCULAR HEMOGLOBIN 28.1 PG (27.0-34.0); MEAN CORPUSCULAR HGB CONC 33.1 % (32.0-36.0); MEAN PLATELET VOLUME 7.8 FL (7.0-11.0); PLATELET COUNT 214 TH/MM3 (150-450); RED BLOOD COUNT 4.45 MIL/MM3 (4.50-5.90); RED CELL DISTRIBUTION WIDTH 14.8 % (11.6-17.2); WHITE BLOOD COUNT 8.4 TH/MM3 (4.0-11.0)
[2017-08-04 05:25] LABS: BICARBONATE 26.9 MEQ/L (21.0-32.0); CALCIUM 8.5 MG/DL (8.5-10.1); CREATININE 1.11 MG/DL (0.60-1.30); MAGNESIUM 2.2 MG/DL (1.5-2.5)
[2017-08-04] MEDS: ceFAZolin 2 GM PREMIX 50 ML IV SCH ×3 (05:50→21:28)
[2017-08-04] MEDS: PANTOPRAZOLE SOD 40 MG DELAYED RELEASE TAB PO SCH (05:54)
[2017-08-04] MEDS: KETOROLAC TROMETHAMINE 30 MG/ML (IVP) VIAL IV PUSH PRN (09:22)
[2017-08-04] MEDS: SODIUM CHLORIDE 0.9% FLUSH 10 ML FLUSH IV FLUSH SCH ×2 (09:23→20:49)
[2017-08-04] MEDS: AMIODARONE 200 MG TAB PO SCH ×2 (09:23→20:51)
[2017-08-04] MEDS: ASPIRIN 81 MG CHEW TAB PO SCH (09:23)
[2017-08-04] MEDS ORDERED: GLUCAGON 1 MG/ML VIAL OTHER PRN (09:45)
[2017-08-04] MEDS ORDERED: DEXTROSE 50% IN WATER 50 ML VIAL(D50) IV PUSH PRN (09:45)
[2017-08-04] MEDS ORDERED: SOD PHOSPHATE/SOD BIPHOSPHATE (ADULT) ENEMA 133ML RECTAL PRN (09:45)
[2017-08-04] MEDS ORDERED: BISACODYL 10 MG SUPP RECTAL PRN (09:45)
--- NOTE | 2017-08-04 09:49 | PD.CAR.PN ---
CVT Progress Note CVT: POD #: 1 Subjective/Hospital Course: c/o incisional pain. Doing well Objective: Vital Signs Date Time Temp Pulse Resp B/P (MAP) Pulse Ox O2 Delivery O2 Flow Rate FiO2 08/04/17 07:00 88 08/04/17 07:00 99.0 88 20 109/64 (79) 95 111/65 (80) 08/04/17 06:38 18 08/04/17 04:00 18 08/04/17 03:00 73 08/04/17 03:00 98.2 73 20 110/58 (75) 92 117/55 (75) 08/03/17 23:00 98.2 81 20 115/70 (85) 98 127/60 (82) 08/03/17 23:00 81 08/03/17 19:30 20 08/03/17 19:18 95 Nasal Cannula 5.00 08/03/17 19:00 81 08/03/17 19:00 97.6 81 18 112/59 (76) 94 Automatic Cuff 08/03/17 16:25 95 Nasal Cannula 4 08/03/17 16:03 98.6 08/03/17 15:30 40 08/03/17 15:07 50 08/03/17 15:00 66 08/03/17 15:00 97.9 75 12 121/69 (86) 95 123/73 (90) 08/03/17 13:15 95 100 08/03/17 13:06 98.6 08/03/17 13:05 70 08/03/17 13:05 97.6 70 12 112/54 (73) 93 122/64 (83) 08/03/17 13:05 100 Labs: Laboratory Tests Test 08/04/17 04:39 White Blood Count 8.4 TH/MM3 (4.0-11.0) Red Blood Count 4.45 MIL/MM3 (4.50-5.90) Hemoglobin 12.5 GM/DL (13.0-17.0) Hematocrit 37.8 % (39.0-51.0) Mean Corpuscular Volume 84.9 FL (80.0-100.0) Mean Corpuscular Hemoglobin 28.1 PG (27.0-34.0) Mean Corpuscular Hemoglobin Concent 33.1 % (32.0-36.0) Red Cell Distribution Width 14.8 % (11.6-17.2) Platelet Count 214 TH/MM3 (150-450) Mean Platelet Volume 7.8 FL (7.0-11.0) Blood Urea Nitrogen 12 MG/DL (7-18) Creatinine 1.11 MG/DL (0.60-1.30) Random Glucose 120 MG/DL (74-106) Calcium Level 8.5 MG/DL (8.5-10.1) Magnesium Level 2.2 MG/DL (1.5-2.5) Sodium Level 138 MEQ/L (136-145) Potassium Level 4.0 MEQ/L (3.5-5.1) Chloride Level 104 MEQ/L (98-107) Carbon Dioxide Level 26.9 MEQ/L (21.0-32.0) Anion Gap 7 MEQ/L (5-15) Estimat Glomerular Filtration Rate 82 ML/MIN (>89) Result Diagram: 08/04/17 0439 08/04/17 0439 Imaging: Last 24 hours Impressions Chest X-Ray 08/04/17 0500 Signed Impressions: Service Date/Time: Friday, August 04, 2017 03:47 - CONCLUSION: Bibasilar atelectasis. No evidence of pneumothorax. Rob Waddell MD Cardiovascular: RRR Telemetry: NSR Pulmonary: Few crackles bilat GI/: NABS, NT Incision: dry and intact CT: 275 ml Plan: Transfer to stepdown Encourage ambulation, up to chair Remove tanner Advance diet Stim BM Danay Thayer MD Aug 04, 2017 09:49
[2017-08-04] MEDS: INSULIN ASPART SUPPLEMENTAL SCALE SQ SCH ×4 (10:00→22:00)
[2017-08-04] MEDS: CLOPIDOGREL 75 MG TAB PO SCH (13:50)
[2017-08-04] MEDS: ACETAMINOPHEN/HYDROcodone 325 MG/5 MG TAB PO PRN ×3 (14:34→21:27)
[2017-08-04] MEDS ORDERED: FUROSEMIDE 40 MG/4 ML VIAL IV PUSH ONE (18:15)
[2017-08-04] MEDS ORDERED: SODIUM CHLOR 0.9% 250 ML INJ 250 ML IV ONE (18:15)
[2017-08-04] MEDS: ATORVASTATIN 80 MG TAB PO SCH (20:51)
[2017-08-04] MEDS: DOCUSATE SODIUM 100 MG CAP PO SCH (20:51)
[2017-08-04] MEDS: SENNOSIDES 8.6 MG TAB PO SCH (20:51)
[2017-08-05] VITALS (26 sets, daily range): BP systolic 112–141; BP diastolic 57–77; PULSE 66–92; RESP 16–20; TEMP 98.1–99.1; O2SAT 94–97
[2017-08-05] MEDS: KETOROLAC TROMETHAMINE 30 MG/ML (IVP) VIAL IV PUSH PRN ×2 (00:24→09:16)
[2017-08-05] MEDS: INSULIN ASPART SUPPLEMENTAL SCALE SQ SCH ×5 (02:00→21:00)
[2017-08-05] MEDS: ACETAMINOPHEN/HYDROcodone 325 MG/5 MG TAB PO PRN ×6 (02:48→21:01)
[2017-08-05] MEDS: RESP: ALBUTEROL 2.5 MG/IPRATROPIUM 0.5 MG NEB (SCH) NEB ×2 (02:56→09:11)
[2017-08-05 03:13] LABS: AUTOMATED NEUTROPHIL # 7.5 TH/MM3 (1.8-7.7); BASOPHIL % 0.2 % (0.0-2.0); EOSINOPHIL % 0.5 % (0.0-4.0); HEMATOCRIT 35.4 % (39.0-51.0); HEMOGLOBIN 11.7 GM/DL (13.0-17.0); LYMPH % 14.8 % (9.0-44.0); LYMPHOCYTE # 1.5 TH/MM3 (1.0-4.8); MEAN CORPUSCULAR HEMOGLOBIN 28.4 PG (27.0-34.0); MONOCYTE # 1.1 TH/MM3 (0-0.9); NEUT % 73.5 % (16.0-70.0); PLATELET COUNT 217 TH/MM3 (150-450); RED BLOOD COUNT 4.11 MIL/MM3 (4.50-5.90); RED CELL DISTRIBUTION WIDTH 14.7 % (11.6-17.2); WHITE BLOOD COUNT 10.2 TH/MM3 (4.0-11.0)
[2017-08-05 03:27] LABS: CREATININE 1.36 MG/DL (0.60-1.30); MAGNESIUM 2.3 MG/DL (1.5-2.5)
[2017-08-05] MEDS: PANTOPRAZOLE SOD 40 MG DELAYED RELEASE TAB PO SCH (05:11)
[2017-08-05] MEDS: MAGNESIUM HYDROXIDE SUSP 30 ML CUP PO SCH (07:47)
[2017-08-05] MEDS: CLOPIDOGREL 75 MG TAB PO SCH (07:48)
[2017-08-05] MEDS: ASPIRIN 81 MG CHEW TAB PO SCH (07:48)
[2017-08-05] MEDS: AMIODARONE 200 MG TAB PO SCH ×2 (07:48→21:00)
[2017-08-05] MEDS: POLYETHYLENE GLYCOL 17 GM PKG PO SCH (07:49)
[2017-08-05] MEDS: DOCUSATE SODIUM 100 MG CAP PO SCH ×2 (07:49→21:00)
[2017-08-05] MEDS: MULTIVITAMINS/MINERALS THERAPEUTIC TAB PO SCH (07:49)
[2017-08-05] MEDS: ALLOPURINOL 100 MG TAB PO SCH (07:49)
[2017-08-05] MEDS: SODIUM CHLORIDE 0.9% FLUSH 10 ML FLUSH IV FLUSH SCH ×2 (09:00→21:00)
--- NOTE | 2017-08-05 10:16 | PD.CAR.PN ---
CVT Progress Note CVT: POD #: 2 Subjective/Hospital Course: c/o incisional pain. Doing well 08/05/17 c/o hematuria, Cr slightly up Objective: Vital Signs Date Time Temp Pulse Resp B/P (MAP) Pulse Ox O2 Delivery O2 Flow Rate FiO2 08/05/17 09:16 95 21 08/05/17 09:00 66 08/05/17 08:00 78 08/05/17 07:00 98.8 75 18 123/58 (79) 94 08/05/17 07:00 70 08/05/17 06:00 66 08/05/17 05:00 75 08/05/17 04:00 80 08/05/17 03:00 80 08/05/17 03:00 99.1 77 16 112/57 (75) 97 08/05/17 02:00 70 08/05/17 01:00 77 08/05/17 00:00 80 08/04/17 23:00 94 08/04/17 23:00 99.2 77 18 122/67 (85) 95 08/04/17 22:33 17 08/04/17 22:00 82 08/04/17 21:00 81 08/04/17 20:01 84 08/04/17 19:34 97 Nasal Cannula 3.00 08/04/17 19:00 84 08/04/17 19:00 98.9 83 16 128/67 (87) 97 08/04/17 18:00 85 08/04/17 17:00 78 08/04/17 16:28 98.9 84 22 117/64 (81) 97 08/04/17 16:00 76 08/04/17 15:00 81 08/04/17 15:00 99.0 81 20 122/69 (86) 96 08/04/17 11:00 98.7 75 20 107/66 (80) 89 Arterial Line 08/04/17 11:00 75 Labs: Laboratory Tests Test 08/05/17 02:50 White Blood Count 10.2 TH/MM3 (4.0-11.0) Red Blood Count 4.11 MIL/MM3 (4.50-5.90) Hemoglobin 11.7 GM/DL (13.0-17.0) Hematocrit 35.4 % (39.0-51.0) Mean Corpuscular Volume 86.0 FL (80.0-100.0) Mean Corpuscular Hemoglobin 28.4 PG (27.0-34.0) Mean Corpuscular Hemoglobin Concent 33.0 % (32.0-36.0) Red Cell Distribution Width 14.7 % (11.6-17.2) Platelet Count 217 TH/MM3 (150-450) Mean Platelet Volume 8.0 FL (7.0-11.0) Neutrophils (%) (Auto) 73.5 % (16.0-70.0) Lymphocytes (%) (Auto) 14.8 % (9.0-44.0) Monocytes (%) (Auto) 11.0 % (0.0-8.0) Eosinophils (%) (Auto) 0.5 % (0.0-4.0) Basophils (%) (Auto) 0.2 % (0.0-2.0) Neutrophils # (Auto) 7.5 TH/MM3 (1.8-7.7) Lymphocytes # (Auto) 1.5 TH/MM3 (1.0-4.8) Monocytes # (Auto) 1.1 TH/MM3 (0-0.9) Eosinophils # (Auto) 0.0 TH/MM3 (0-0.4) Basophils # (Auto) 0.0 TH/MM3 (0-0.2) CBC Comment DIFF FINAL Differential Comment Blood Urea Nitrogen 16 MG/DL (7-18) Creatinine 1.36 MG/DL (0.60-1.30) Random Glucose 111 MG/DL (74-106) Calcium Level 9.0 MG/DL (8.5-10.1) Magnesium Level 2.3 MG/DL (1.5-2.5) Sodium Level 138 MEQ/L (136-145) Potassium Level 4.2 MEQ/L (3.5-5.1) Chloride Level 102 MEQ/L (98-107) Carbon Dioxide Level 31.0 MEQ/L (21.0-32.0) Anion Gap 5 MEQ/L (5-15) Estimat Glomerular Filtration Rate 65 ML/MIN (>89) Result Diagram: 08/05/17 0250 08/05/17 0250 Cardiovascular: RRR Telemetry: NSR Pulmonary: CTA GI/: NABS, NT Incision: dry and intact CT: 50ml/12hrs Plan: D/C chest tubes D/C toradol due to increase in creatinine Encourage ambulation Monitor urine output - h/o traumatic tanner insertion Danay Mccarthy MD Aug 05, 2017 10:16
[2017-08-05] MEDS ORDERED: FUROSEMIDE 40 MG/4 ML VIAL IV PUSH SCH (11:00)
[2017-08-05] MEDS: ATORVASTATIN 80 MG TAB PO SCH (21:00)
[2017-08-05] MEDS: SENNOSIDES 8.6 MG TAB PO SCH (21:00)
[2017-08-06] VITALS (22 sets, daily range): BP systolic 111–156; BP diastolic 60–76; PULSE 63–98; RESP 18–20; TEMP 98.2–98.8; O2SAT 91–97
[2017-08-06] MEDS: ACETAMINOPHEN/HYDROcodone 325 MG/5 MG TAB PO PRN ×5 (03:00→22:46)
[2017-08-06 05:03] LABS: BICARBONATE 29.8 MEQ/L (21.0-32.0); CREATININE 1.28 MG/DL (0.60-1.30)
[2017-08-06] MEDS: PANTOPRAZOLE SOD 40 MG DELAYED RELEASE TAB PO SCH (05:44)
[2017-08-06] MEDS: INSULIN ASPART SUPPLEMENTAL SCALE SQ SCH ×4 (07:45→21:14)
[2017-08-06] MEDS: MAGNESIUM HYDROXIDE SUSP 30 ML CUP PO SCH (08:23)
[2017-08-06] MEDS: ASPIRIN 81 MG CHEW TAB PO SCH (08:23)
[2017-08-06] MEDS: POLYETHYLENE GLYCOL 17 GM PKG PO SCH (08:23)
[2017-08-06] MEDS: DOCUSATE SODIUM 100 MG CAP PO SCH ×2 (08:23→21:00)
[2017-08-06] MEDS: ALLOPURINOL 100 MG TAB PO SCH (08:23)
[2017-08-06] MEDS: AMIODARONE 200 MG TAB PO SCH ×2 (08:24→21:09)
[2017-08-06] MEDS: CLOPIDOGREL 75 MG TAB PO SCH (08:24)
[2017-08-06] MEDS: MULTIVITAMINS/MINERALS THERAPEUTIC TAB PO SCH (08:24)
[2017-08-06] MEDS: SODIUM CHLORIDE 0.9% FLUSH 10 ML FLUSH IV FLUSH SCH ×2 (08:34→21:00)
[2017-08-06] MEDS ORDERED: FUROSEMIDE 40 MG/4 ML VIAL IV PUSH ONE (10:15)
--- NOTE | 2017-08-06 10:29 | PD.CAR.PN ---
CVT Progress Note Subjective/Hospital Course: 62-year-old male, patient of Dr. Aureliano Swanson, Dr. Fredrick Witt, seen back on post cardiac cath , HX of CAD with prior stent in 2008. 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 He ended up in an hospital up in [place] and was ruled out for DC. They did however start some Imdur besides his nitroglycerin sublingual. He had seen Dr. Swanson prior to that because of some chest discomfort he had been having off and on for the past couple of months, mainly pressure in the center of his chest. He underwent a nuclear stress test that showed normal LV systolic function, ejection fraction of 59. No regional wall motion abnormalities. He also underwent CTA and coronary angiogram which also showed an EF at that point of 48 %. Extensive calcified plaque within the LAD, apparently there was a stent in the proximal segment which appeared to be patent. There was also some scattered calcified plaque through the RCA. There is a stent in the RCA, suggested that it was patent. Good wall motion contractility. He underwent cardiac cath 07/30 that showed ejection fraction of 65%, the left main 30% stenosed, proximal LAD 90%, diagonal 75%, the OM 75%, the RCA 80%. We were at that time to evaluate for coronary artery bypass grafting. PAST MEDICAL HISTORY: Coronary artery disease, Hypertension, Chronic lower extremity edema where he uses compression stocking, Chronic kidney disease stage II, Gout, Hyperlipidemia, Vitamin D deficiency 08/03 surgery: Off-pump Coronary Artery Bypass Grafting x 4 with Left Internal Mammary Artery ( OROSCO) to the Left Anterior Descending (LAD), reverse saphenous vein graft to the Obtuse Marginal 1 (OM1) branch of the Circumflex artery, reverse saphenous vein graft to the Diagonal 1 (D1), reverse saphenous vein graft to the Posterior Descending Artery (RPDA) of the Right Coronary Artery, Left Leg Endoscopic Vein Gilbert 08/04 c/o incisional pain. Doing well 08/05/17 c/o hematuria, Cr slightly up 08/06 creatinine improving, still on 3 liter nasal cannula, few basilar crackles, gentle diuresis, had some hematuria yesterday, check UA also check CXR today / chest tube removed yesterday eval for possible dc tomorrow No BM since surgery , will need additional GI meds Objective: Vital Signs Date Time Temp Pulse Resp B/P (MAP) Pulse Ox O2 Delivery O2 Flow Rate FiO2 08/06/17 10:00 80 08/06/17 09:00 88 08/06/17 08:00 72 08/06/17 07:00 84 08/06/17 07:00 93 Room Air 08/06/17 07:00 98.8 86 18 111/61 (78) 93 08/06/17 06:00 87 08/06/17 05:01 63 08/06/17 04:20 20 08/06/17 04:00 70 08/06/17 03:00 98.3 69 20 123/60 (81) 93 08/06/17 03:00 72 08/06/17 02:00 84 08/06/17 01:00 68 08/06/17 00:00 74 08/05/17 23:00 98.8 70 20 125/61 (82) 97 08/05/17 23:00 70 08/05/17 22:00 72 08/05/17 21:00 74 08/05/17 20:00 74 08/05/17 19:46 96 Nasal Cannula 2.00 08/05/17 19:00 98.1 74 18 125/60 (81) 96 08/05/17 19:00 74 08/05/17 19:00 96 Nasal Cannula 2.00 08/05/17 18:00 66 08/05/17 17:00 70 08/05/17 16:00 70 08/05/17 15:00 79 08/05/17 15:00 98.9 74 18 141/77 (98) 96 08/05/17 14:00 80 08/05/17 13:00 72 08/05/17 12:00 79 08/05/17 11:00 72 08/05/17 11:00 98.1 85 18 119/62 (81) 95 Labs: Laboratory Tests Test 08/06/17 04:20 Blood Urea Nitrogen 20 MG/DL (7-18) Creatinine 1.28 MG/DL (0.60-1.30) Random Glucose 122 MG/DL (74-106) Calcium Level 9.0 MG/DL (8.5-10.1) Sodium Level 135 MEQ/L (136-145) Potassium Level 4.9 MEQ/L (3.5-5.1) Chloride Level 99 MEQ/L (98-107) Carbon Dioxide Level 29.8 MEQ/L (21.0-32.0) Anion Gap 6 MEQ/L (5-15) Estimat Glomerular Filtration Rate 69 ML/MIN (>89) Result Diagram: 08/05/17 0250 08/06/17 0420 Telemetry: NSR (1) Coronary artery disease (2) S/P CABG x 4 Plan: ASA, statin, BB , plavix, amiodarone (3) Chronic kidney disease Plan: avoid nephrotoxic drugs recheck BMP in am (4) Hematuria Plan: check UA, may need to stop plavix Jacquie Killian Aug 06, 2017 10:29
--- NOTE | 2017-08-06 10:34 | HHI.FF ---
Face to Face Verification Diagnosis: (1) Coronary artery disease (2) Chronic kidney disease (3) Hematuria (4) S/P CABG x 4 Home Health Nursing Order: Signs/symptoms of disease process Medication education-adverse effect Wound care and dressing changes Nursing assessment with vital signs Instructions: Heart and Vascular Surgery patients *Special attention to sternal dressing Mandatory frequency Assess and evaluation, 4 days in a row The next week 3X week 2 times a week for 4 weeks 1 time a week for 5 weeks Schedule Heart and Vascular patients for full 60 day certification period Initial visit Review Open Heart Surgery Discharge Instructions (Sternal precautions, Activity, Elastic hose, Incision care, Driving, Incentive spirometry, Smoking, Rossiter, Work and other) Need Betadine to paint incision Medication reconciliation Importance of follow up care/ check on appointments Make calendar record temperature daily When to call [facility] nurse, review instructions, phone list Incentive Spirometry, demonstration Visit 1- Begin discharge instruction for patient family and/ or caregiver using teach back method- Signs and symptoms of infection Disease characteristics Medicines and side effects Foods and nutrition/ appetite Infection control/ hand washing/ hygiene Visit 2- Continue teaching Discharge instructions- include additional information on smoking cessation , sternal dressing (sternal vac) Visit 3- Continue teaching- Cough and deep breathing, incision monitoring. Choose my plate Visit 4- Continue teaching- Discuss limitations Discuss how they are feeling Discuss progress toward goals Remaining visits- continue teaching and monitoring PREVENA Single Use Negative Wound Therapy System Caregiver Instruction Sheet 1. A Prevena dressing system was applied to the chest incision during surgery , to promote wound healing. It works via a suction device (negative pressure wound therapy) to remove low to moderate levels of exudate (drainage) and infectious materials. We recommend that the device stay in place for up to seven days, from day of surgery. 2. Day of Surgery___/07/09 Day of Removal 08/10/17 3. The dressing should only be removed by a health career resource specialist. Please arrange removal of device to coincide with Home Health visit and or with Nursing staff at Rehab 4. If skin reddening or irritation of skin occurs, or excessive drainage, please notify the Cardiovascular Surgeons office at [phone]. 5. Light showering is permissible; however the pump should be disconnected and placed in safe location, where it will not get wet. The dressing should not be exposed to direct spray or submerged in water. No bath tub / shower only. Ensure the end of the tubing attached to the dressing is facing down so that water does not enter the top of the tube. 6. To remove Prevena dressing: press purple button to turn off device / remove the suction. Then disconnect the tubing from the pump. The fixation strips should be stretched away from the skin and the dressing lifted at one corner and peeled back until it has been fully removed. 7. After removal, it is ok to shower daily using liquid dial soap and clean wash cloth, rinse and pat dry, and leave incision open to air dry. For any concerns regarding Prevena dressing, and or wounds, please contact Tita Mcginnis, patient navigator at [phone] or notify the Cardiovascular Surgeons office at [phone]. Incentive spirometry Q1 hr x 10, while awake, also use acapella device hourly whole awake Sternal Breast Bone Precautions: NO pushing or pulling, ( pt must use sternal pillow to support chest with all activities and with coughing ( takes up to 3 months breast bone to heal ) Daily incision care: ok to shower daily, no tub bath. Wash all incisions with liquid dial soap, clean wash cloth to each site, rinse and pat dry. Observe for any signs of infection, such as drainage which is dark yellow, guillen, green or foul smelling. Immediately report to the surgeon any drainage from the chest incision, or legs, and for any abnormal drainage from the chest tube sites. Notify surgeon if any temp >101.5 degrees F. When specialty dressing removed/ or if you do not have one, continue to shower daily as above, then rinse and pat incision dry and paint with betadine daily x 5 days. Allow steri strips to fall off if you have any. Avoid lotions, creams, salves, oils, etc. for the first month Please see attached forms for additional instructions regarding post Open Heart specialty wound vacuum dressings. LALO or Prevena , Dressing to be removed by Nursing staff on _08/10/17 F/U appointment: as per DC instructions: PCP in 2 weeks, CV surgeon 2 weeks, Potato Peeling Machine Operator 3-4 weeks For any questions regarding incisions/ dressing / meds / post op care or above Symptoms, [place] [place] 8am-5pm Heart & Vascular Surgery Office ( Dr. Oscar & Dr. Mccarthy), After Hours / Nights (5pm -8am) Weekends and Holidays Please call [facility] ([facility]) Charge Nurse I have seen patient Ryder Hamm on 08/06/17. My clinical findings support the need for the requested home health care services because: Deconditioned w/ increased weakness I certify that my clinical findings support that this patient is homebound because: Post-op weakness Jacquie Killian Aug 06, 2017 10:34
--- NOTE | 2017-08-06 10:58 | RADRPT ---
EXAM DATE/TIME: 08/06/2017 10:32 [facility] COMPARISON: CHEST SINGLE AP, August 04, 2017, 3:47. INDICATIONS : Chest tube removal. MEDICAL HISTORY : Coronary artery disease. Hypertension. Hyperlipidemia. Mumps. Measles. SURGICAL HISTORY : Coronary artery stent ENCOUNTER: Subsequent ACUITY: 1 week PAIN SCORE: 4/10 LOCATION: Bilateral chest FINDINGS: The right venous catheter and chest tubes have been removed. Median sternotomy is again appreciated w ith basilar opacities, atelectasis which is stable. There is no evidence of pneumothorax. CONCLUSION: Stable persistent basilar opacities atelectasis. No pneumothorax. Support apparatus has been removed. Raul Benavidez MD on August 06, 2017 at 10:53 Board Certified Radiologist. This report was verified electronically.
[2017-08-06] MEDS: METOPROLOL TARTRATE 25 MG TAB PO SCH ×2 (13:19→21:09)
[2017-08-06 14:31] LABS: BILIRUBIN, URINE NEG (NEG); BLOOD, URINE SMALL (NEG); GLUCOSE,URINE NEG (NEG); KETONE, URINE NEG (NEG); NITRITE,URINE NEG (NEG); PH, URINE 5.5 (5.0-8.5); SQUAMOUS EPITHELIAL CELL URINE <1 /hpf (0-5); URINE COLOR LIGHT-YELLOW (YELLW/STRAW); URINE LEUKOCYTE ESTERASE NEG (NEG)
[2017-08-06] MEDS: SENNOSIDES 8.6 MG TAB PO SCH (21:00)
[2017-08-06] MEDS: ATORVASTATIN 80 MG TAB PO SCH (21:09)
[2017-08-07] VITALS (14 sets, daily range): BP systolic 130–135; BP diastolic 70–77; PULSE 59–84; RESP 18–22; TEMP 97.8–99; O2SAT 93–95
[2017-08-07 05:33] LABS: BICARBONATE 28.7 MEQ/L (21.0-32.0); CALCIUM 9.5 MG/DL (8.5-10.1); CREATININE 1.4 MG/DL (0.60-1.30)
[2017-08-07] MEDS: PANTOPRAZOLE SOD 40 MG DELAYED RELEASE TAB PO SCH (06:04)
[2017-08-07] MEDS: ACETAMINOPHEN/HYDROcodone 325 MG/5 MG TAB PO PRN ×2 (06:10→10:20)
[2017-08-07] MEDS: INSULIN ASPART SUPPLEMENTAL SCALE SQ SCH ×2 (08:00→12:00)
[2017-08-07] MEDS: POLYETHYLENE GLYCOL 17 GM PKG PO SCH (08:52)
[2017-08-07] MEDS: CLOPIDOGREL 75 MG TAB PO SCH (08:52)
[2017-08-07] MEDS: MULTIVITAMINS/MINERALS THERAPEUTIC TAB PO SCH (08:52)
[2017-08-07] MEDS: ALLOPURINOL 100 MG TAB PO SCH (08:53)
[2017-08-07] MEDS: ASPIRIN 81 MG CHEW TAB PO SCH (08:53)
[2017-08-07] MEDS: DOCUSATE SODIUM 100 MG CAP PO SCH (08:53)
[2017-08-07] MEDS: METOPROLOL TARTRATE 25 MG TAB PO SCH (08:53)
[2017-08-07] MEDS: AMIODARONE 200 MG TAB PO SCH (08:53)
[2017-08-07] MEDS: SODIUM CHLORIDE 0.9% FLUSH 10 ML FLUSH IV FLUSH SCH (08:54)
[2017-08-07] MEDS ORDERED: METO25TA3 PO (12:39)
[2017-08-07] MEDS ORDERED: DOCU1CAP39 PO (12:39)
[2017-08-07] MEDS ORDERED: AMIO200T PO (12:39)
[2017-08-07] MEDS ORDERED: PLAV75TA29 PO (12:39)
[2017-08-07] MEDS ORDERED: THERM PO (12:39)
[2017-08-07] MEDS ORDERED: OXYGENDME NAS.CANULA (12:39)
[2017-08-07] MEDS ORDERED: HYDR-3516 PO (12:39)
--- NOTE | 2017-08-07 12:51 | HHI.DS ---
Discharge Summary Admission Date Aug 03, 2017 at 05:17 Discharge Date: Aug 07, 2017 Admitting Diagnosis chest pain , CAD (1) Lymphedema of left leg ICD Codes: I89.0 - Lymphedema, not elsewhere classified Status: Chronic (2) Coronary artery disease Diagnosis: Principal ICD Codes: I25.10 - Atherosclerotic heart disease of [place] coronary artery without angina pectoris (3) Chronic kidney disease ICD Codes: N18.9 - Chronic kidney disease, unspecified Status: Chronic (4) Hypoxemia Diagnosis: Secondary ICD Codes: R09.02 - Hypoxemia (5) S/P CABG x 4 Diagnosis: Secondary ICD Codes: Z95.1 - Presence of aortocoronary bypass graft Procedures 08/03 1. Off-pump Coronary Artery Bypass Grafting x 4 with Left Internal Mammary Artery (OROSCO) to the Left Anterior Descending (LAD), reverse saphenous vein graft to the Obtuse Marginal 1 (OM1) branch of the Circumflex artery, reverse saphenous vein graft to the Diagonal 1 (D1), reverse saphenous vein graft to the Posterior Descending Artery (RPDA) of the Right Coronary Artery 2. Left Leg Endoscopic Vein [place] 3. Intraoperative Vein Mapping Brief History 62-year-old male, patient of Dr. Aureliano Swanson, Dr. Fredrick Witt, seen back on post cardiac cath , HX of CAD with prior stent in 2008. 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 He ended up in an hospital up in [place] and was ruled out for [place]. They did however start some Imdur besides his nitroglycerin sublingual. He had seen Dr. Swanson prior to that because of some chest discomfort he had been having off and on for the past couple of months, mainly pressure in the center of his chest. He underwent a nuclear stress test that showed normal LV systolic function, ejection fraction of 59. No regional wall motion abnormalities. He also underwent CTA and coronary angiogram which also showed an EF at that point of 48 %. Extensive calcified plaque within the LAD, apparently there was a stent in the proximal segment which appeared to be patent. There was also some scattered calcified plaque through the RCA. There is a stent in the RCA, suggested that it was patent. Good wall motion contractility. He underwent cardiac cath 1/8 that showed ejection fraction of 65%, the left main 30% stenosed, proximal LAD 90%, diagonal 75%, the OM 75%, the RCA 80%. We were at that time to evaluate for coronary artery bypass grafting. PAST MEDICAL HISTORY: Coronary artery disease, Hypertension, Chronic lower extremity edema where he uses compression stocking, Chronic kidney disease stage II, Gout, Hyperlipidemia, Vitamin D deficiency CBC/BMP: 08/05/17 0250 08/07/17 0400 Significant Findings Laboratory Tests Test 08/05/17 02:50 08/06/17 04:20 08/06/17 14:00 08/07/17 04:00 Red Blood Count 4.11 MIL/MM3 (4.50-5.90) Hemoglobin 11.7 GM/DL (13.0-17.0) Hematocrit 35.4 % (39.0-51.0) Neutrophils (%) (Auto) 73.5 % (16.0-70.0) Monocytes (%) (Auto) 11.0 % (0.0-8.0) Monocytes # (Auto) 1.1 TH/MM3 (0-0.9) Creatinine 1.36 MG/DL (0.60-1.30) 1.40 MG/DL (0.60-1.30) Random Glucose 111 MG/DL (74-106) 122 MG/DL (74-106) Estimat Glomerular Filtration Rate 65 ML/MIN (>89) 69 ML/MIN (>89) 62 ML/MIN (>89) Blood Urea Nitrogen 20 MG/DL (7-18) 22 MG/DL (7-18) Sodium Level 135 MEQ/L (136-145) 135 MEQ/L (136-145) Urine Occult Blood SMALL (NEG) Urine RBC 17 /hpf (0-3) Chloride Level 97 MEQ/L (98-107) Imaging Last Impressions Chest X-Ray 08/06/17 0000 Signed Impressions: Service Date/Time: Sunday, August 06, 2017 10:32 - CONCLUSION: Stable persistent basilar opacities atelectasis. No pneumothorax. Support apparatus has been removed. Raul Benaviedz MD PE at Discharge GENERAL: A&O x 3 SKIN: Warm and dry. prevena dressing to chest , incision intact to left leg HEAD: Atraumatic. Normocephalic. EYES: Pupils equal and round. No scleral icterus. No injection or drainage. ENT: No nasal bleeding or discharge. Mucous membranes pink and moist. NECK: Trachea midline. No JVD. CARDIOVASCULAR: Regular rate and rhythm. , + 1 edema lower ext RESPIRATORY: No accessory muscle use. Clear to auscultation. Breath sounds equal bilaterally. GASTROINTESTINAL: Abdomen soft, non-tender, nondistended. MUSCULOSKELETAL: Extremities without clubbing, cyanosis, or edema. No obvious deformities. NEUROLOGICAL: Awake and alert. No obvious cranial nerve deficits. Motor grossly within normal limits. Five out of 5 muscle strength in the arms and legs. Normal speech. PSYCHIATRIC: Appropriate mood and affect; insight and judgment normal. Hospital Course 08/03 surgery: Off-pump Coronary Artery Bypass Grafting x 4 with Left Internal Mammary Artery ( OROSCO) to the Left Anterior Descending (LAD), reverse saphenous vein graft to the Obtuse Marginal 1 (OM1) branch of the Circumflex artery, reverse saphenous vein graft to the Diagonal 1 (D1), reverse saphenous vein graft to the Posterior Descending Artery (RPDA) of the Right Coronary Artery, Left Leg Endoscopic Vein [place] 08/04 c/o incisional pain. Doing well 08/05/17 c/o hematuria, Cr slightly up 08/06 creatinine improving, still on 3 liter nasal cannula, few basilar crackles, gentle diuresis, had some hematuria yesterday, check UA also check CXR today / chest tube removed yesterday eval for possible dc tomorrow No BM since surgery , will need additional GI meds 08/07 + BM, weight stable chronic edema lower ext remains in NSR , creatinine 1.4 no further diuresis stable for dc home today with [facility] desats with ambulation , Home walk test completed, will need home 02 Pt Condition on Discharge: Good Discharge Disposition: Disch w/ Home Health Serv Discharge Instructions DIET: Follow Instructions for: Heart Healthy Diet, Low Sodium Diet Activities you can perform: Full Weight Bearing, Shower Only-No Bath Activities to avoid: Strenuous Activity, Driving Additional Activity Instructio: no lifting > 8 lbs or gallon of milk New Medications: Oxygen (O2) (Oxygen (O2)) Device LITER MELIZA.CANULA CONTINUOUS for Prevent Hypoxemia, #3 Oxygen Concentrator Portable Gaseous 3 L/min via Nasal Canula Continuous For 99 months Amiodarone (Amiodarone) 200 Mg Tab 200 MG PO Q12HR for heart rhythm, #28 TAB 0 Refills Clopidogrel (Plavix) 75 Mg Tab 75 MG PO DAILY for Blood Clot Prevention, #30 TAB 2 Refills Docusate Sodium (Dok) 100 Mg Cap 100 MG PO BID for Constipation, #60 CAP 0 Refills Hydrocodone/Acetaminophen (Hydrocodone-Acetamin 5-325 mg) 5 Mg-325 Mg Tablet 1 TAB PO Q4HR PRN for PAIN SCALE 1 TO 5, #40 TAB 0 Refills Metoprolol Tartrate (Metoprolol Tartrate) 25 Mg Tab 25 MG PO Q12HR for Blood Pressure Management, #60 TAB 2 Refills Multiple Vitamins W/ Minerals (Thera M Plus) 1 Tab 1 TAB PO DAILY for multi vitamin, #30 TAB 2 Refills Continued Medications: Allopurinol (Allopurinol) 100 Mg Tab 100 MG PO DAILY for Gout, #30 TAB [address] (Aspirin 81) 81 Mg Tabdr 81 MG PO DAILY, TAB 0 Refills Atorvastatin (Atorvastatin) 80 Mg Tab 80 MG PO HS for Cholesterol Management, #30 TAB 0 Refills Discontinued Medications: Amlodipine (Amlodipine) 10 Mg Tab 10 MG PO DAILY for Blood Pressure Management, #30 TAB 0 Refills Losartan (Losartan) 50 Mg Tab 50 MG PO DAILY for Blood Pressure Management, #30 TAB 0 Refills Metoprolol Tartrate (Metoprolol Tartrate) 50 Mg Tab 50 MG PO BID, #60 TAB 0 Refills Jacquie Killian Aug 07, 2017 12:51
== END 2017-08-07 16:05 | disposition home health service (06) | DRG 236 ==
LOC: HSDI 05:17 → HCVI 13:17 → HCPC 08-04 16:02
PROVIDERS: ADMIT Thoracic Surgery (Cardiothoracic Vascular Surgery); ATTEND Thoracic Surgery (Cardiothoracic Vascular Surgery)
PROC: 06BQ4ZZ Excision of Left Saphenous Vein, Percutaneous Endoscopic Approach (ICD-10-PCS; 2017-08-03)
PROC: 02100Z9 Bypass Coronary Artery, One Artery from Left Internal Mammary, Open Approach (ICD-10-PCS; principal; 2017-08-03 07:15)
PROC: 021209W Bypass Coronary Artery, Three Arteries from Aorta with Autologous Venous Tissue, Open Approach (ICD-10-PCS; 2017-08-03 07:15)
DX: I25.118 Atherosclerotic heart disease of native coronary artery with other forms of angina pectoris (principal); I12.9 Hypertensive chronic kidney disease with stage 1 through stage 4 chronic kidney disease, or unspecified chronic kidney disease; N18.2 Chronic kidney disease, stage 2 (mild); Z95.5 Presence of coronary angioplasty implant and graft; E78.5 Hyperlipidemia, unspecified; I25.2 Old myocardial infarction; M10.9 Gout, unspecified; E66.9 Obesity, unspecified; Z68.31 Body mass index [BMI] 31.0-31.9, adult; I89.0 Lymphedema, not elsewhere classified; R31.9 Hematuria, unspecified; R09.02 Hypoxemia
CPT/HCPCS: 71045; 76937; 80048; 81001; 82948; 83735; 85025; 85027; 86850; 86900; 86901; 86920; 94002; 94150; 94618; 94640; 94664; 94667; 94668; C1768; J0131; J0690; J1644; J1815; J1817; J1885; J1940; J2370; J2720; J3010; J3370; J3475; J3480; J7030; J7050; J7120